=== PATIENT | male | born 1975 | race Hispanic/Latino ===

== ENCOUNTER 2021-07-13 21:43 | Emergency (ER) | payer OTHER, SELFPAY ==
[2021-07-13 21:50] VITALS: BP 176/95; PULSE 81; RESP 17; TEMP 36.7; O2SAT 98; BMI 32.8
--- NOTE | 2021-07-13 22:14 | ED_ITS ---
HPI - Abdominal Pain General Chief Complaint: Abdominal Pain Stated Complaint: abdominal pain Time Seen by Provider: 07/13/21 22:13 Source: patient Mode of arrival: Ambulatory History of Present Illness HPI narrative: 46-year-old male nonsmoker without history of alcohol abuse presents for evaluation of generalized abdominal pain gradually worsening over the past 2-3 days. He states that he has had nausea and some vomiting as well as decreased bowel movements for least 1 week. He states that he is passing gas. He has had no fever chills. He denies any dietary change. He was seen and evaluated at an outside facility on June 26 and diagnosed with pancreatitis. He had labs and imaging and was discharged home with pain control and antiemetics. He has not taken any stool softeners. He states this feels significantly different than when he had pancreatitis, less severe and it does not radiate to his back. Related Data Allergies Allergy/AdvReac Type Severity Reaction Status Date / Time No Known Drug Allergies Allergy Verified 07/13/21 22:08 Review of Systems Review of Systems Narrative: GENERAL: Denies chills, fatigue, malaise, fever, sweats. HEENT: Denies sinus pain, ear pain, sore throat, difficulty swallowing, dizziness. RESPIRATORY: Denies dyspnea, cough, wheezing, hemoptysis, sputum. CARDIOVASCULAR: Denies chest pain, palpitations, orthopnea, edema, GASTROINTESTINAL: See HPI : Denies dysuria, frequency, incontinence, hematuria, urinary retention. MUSCULOSKELETAL: denies weakness, joint pain, or bony pain SKIN: Denies rash, skin lesions, or other NEUROLOGIC: Denies weakness, headache, numbness, change in speech, confusion, seizures, incoordination. PSYCHIATRIC: No concerning psychosocial issues. 12 point review of systems is negative except for those stated above Patient History Social History Smoking Status: Never smoker Smoking Status: Never smoker Substance Use Type: does not use Exam Narrative Exam Narrative: GENERAL: [46] year old patient appears stated age. Well-developed patient, in mild distress. HEAD: Atraumatic. Normocephalic. EYES: Pupils equal round and reactive. Extraocular motions intact. No scleral icterus. No injection or drainage. ENT: Nose without bleeding, purulent drainage. Throat without erythema, tonsill ar hypertrophy or exudate. Airway patent. NECK: Trachea midline. Non tender CARDIOVASCULAR: Regular rate and rhythm without murmurs, gallops, or rubs. RESPIRATORY: Clear to auscultation. Breath sounds equal bilaterally. No wheezes, rales, or rhonchi. GASTROINTESTINAL: Abdomen soft, minimal tenderness throughout, nondistended. Decreased bowel sounds EXTREMITIES: No edema or joint tenderness. BACK: Nontender without deformity or crepitance. No flank tenderness. NEURO: AOx3. SKIN: No rash or erythema of visible areas Initial Vital Signs Initial Vital Signs: Vital Signs Temperature 98.1 F 07/13/21 21:50 Pulse Rate 81 07/13/21 21:50 Respiratory Rate 17 07/13/21 21:50 Blood Pressure 176/95 H 07/13/21 21:50 Pulse Oximetry 98 07/13/21 21:50 Course Orders Ordered: ED Orders 07/13/21 22:12 EKG-12 Lead Stat 07/13/21 22:18 XR acute abdomen series Stat 07/13/21 22:22 Complete Blood Count AUTO DIFF Stat Comprehensive Metabolic Panel Stat Lipase Stat Discontinued Medications Sodium Chloride (Normal Saline 0.9%) 1,000 mls @ 1,000 mls/hr IV BOLUS ONE Stop: 07/13/21 23:17 Last Admin: 07/13/21 22:40 Dose: 1,000 mls/hr Documented by: CALIXTO Pantoprazole Sodium (Pantoprazole 40 Mg Vial) 40 mg IV NOW ONE Stop: 07/13/21 22:19 Last Admin: 07/13/21 22:40 Dose: 40 mg Documented by: CALIXTO Vital Signs Vital signs: Vital Signs - 8 hr 07/13/21 21:50 Temperature 98.1 F Pulse Rate 81 Respiratory Rate 17 Blood Pressure 176/95 H Pulse Oximetry 98 MDM - Abdominal Pain Lab Data Result diagrams: 07/13/21 22:22 07/13/21 22:22 Labs: Lab Results 07/13/21 07/13/21 Range/Units 22:22 22:22 WBC 10.4 (4.5-11.0) X10^3/uL RBC 4.59 (4.5-5.9) X10^6/uL Hgb 13.7 (13.5-17.5) g/dL Hct 39.4 L (41-53) % MCV 85.8 (80-100) fL MCH 30.0 (26-34) PG MCHC 34.9 (30-36) % RDW 13.1 (11.6-14.8) % Plt Count 182 (150-400) X10^3/uL Neut % (Auto) 54.3 (50-75) % Lymph % (Auto) 30.9 (25-40) % Barron % (Auto) 12.8 (3-14) % Eos % (Auto) 1.3 L (2-4) % Baso % (Auto) 0.7 (0-2) % Neut # (Auto) 5600 (1037-5362) /uL Lymph # (Auto) 3200 (2811-9721) /uL Barron # (Auto) 1300 H (0-900) /uL Eos # (Auto) 100 (0-450) /uL Baso # (Auto) 100 (0-100) /uL Sodium 143 (137-145) mmol/L Potassium 3.9 (3.4-5.1) mmol/L Chloride 109 H (98-107) mmol/L Carbon Dioxide 27 (22-32) mmol/L BUN 19 (9-20) mg/dL Creatinine 1.01 (0.66-1.25) mg/dL Estimated GFR > 60 (>60) mL/min BUN/Creatinine Ratio 18.8 (6-22) Glucose 104 H (70-100) mg/dL Calcium 8.6 (8.4-10.2) mg/dL Total Bilirubin 0.8 (0.2-1.3) mg/dL AST 28 (17-59) IU/L ALT 37 (<50) IU/L Alkaline Phosphatase 70 (38-126) U/L Total Protein 6.8 (6.3-8.2) g/dL Albumin 3.9 (3.5-5.0) g/dL Globulin 2.9 (1.7-4.1) g/dL Albumin/Globulin Ratio 1.3 (1.0-2.8) Lipase 38 (23-300) U/L Imaging Data Abdominal x-ray: Radiologist's Impression: [address] [address] XRay Report Signed Patient: Flakito Arzola MR#: [id number] : 1975 Acct:[id number] Age/Sex: 46 / M Date of Service: 07/13/21 Loc: ED Accession Number: [id number] ?? Procedure: XR acute abdomen series Ordering Provider: Yanick White D.O. PROCEDURE:? XR ACUTE ABDOMEN SERIES ? INDICATIONS:? decreased BM ? TECHNIQUE:? One view chest and two views of the abdomen were acquired.? ? COMPARISON:? None. ? FINDINGS:? ? Surgical changes and devices:? Cholecystectomy clips. ? Chest:? Lungs are clear.? Heart size is within normal limits.? No pleural effusions.? No pneumoperitoneum.? ? Abdomen:? Relative paucity of small bowel gas.? No dilated loops of bowel identified.? Mild colonic stool burden.? No suspicious calcifications.? Visualized solid organ contours appear normal.? ? Bones:? No suspicious bony lesions.? Minimal scoliosis. ? IMPRESSION:? No acute cardiopulmonary abnormality. ? No dilated loops of small bowel identified.? Relative paucity of small bowel gas limits evaluation for obstruction.? Mild colonic stool burden. ? ? ? Dictated by: Grzegorz Dimas M.D. on 07/13/2021 at 23:03 ? ? Approved by: Grzegorz Dimas M.D. on 07/13/2021 at 23:05 ? MDM Narrative Medical decision making narrative: Patient presents with chief complaint of mild, generalized abdominal pain and decreased bowel movements. He has a very reassuring history and physical exam as well as labs. X-ray shows a large stool burden but no evidence of bowel obstruction. He had recently been seen and and evaluated for pancreatitis at an outside facility nearly 2 weeks ago. He states it feels significantly different today. He had been on opioids. History and physical as well as exam and imaging are most consistent with constipation though gallbladder disease, liver and pancreas are all considered along with bowel obstruction and other. Given reassuring history and physical as well as labs constipation seems most likely diagnosis. I did discuss with the patient that I did not recommend repeat CT scan at this time given the circumstances and low suspicion of any significant underlying diagnosis. He expresses agreement and understanding of the diagnosis and plan. Pain well controlled and patient tolerating oral hydration. Return precautions discussed and questions answered to his apparent satisfaction Discharge Plan Departure Patient Disposition: Home Clinical Impression: Abdominal pain Instructions: DI for Abdominal Pain-Adult Activity Restrictions/Additional Instructions: *You have been diagnosed with [ abdominal pain due to constipation ] *What to do: *Take over the counter medications as directed: 1. Metamucil - bulk forming laxative adds fiber 2. Colace - softens your stool 3. Dulcolax Suppository - stimulates your bowels from the bottom *Follow up with your primary care provider in 2-3 days, call for appointment *Return to ER if you should have any new, worsening or concerning symptoms *Drink plenty of water and eat foods high in fiber *Try to be as active as possible, consider walking your dog daily
--- NOTE | 2021-07-13 22:18 | DI.RAD.S_ITS ---
PROCEDURE: XR ACUTE ABDOMEN SERIES INDICATIONS: decreased BM TECHNIQUE: One view chest and two views of the abdomen were acquired. COMPARISON: None. FINDINGS: Surgical changes and devices: Cholecystectomy clips. Chest: Lungs are clear. Heart size is within normal limits. No pleural effusions. No pneumoperitoneum. Abdomen: Relative paucity of small bowel gas. No dilated loops of bowel identified. Mild colonic stool burden. No suspicious calcifications. Visualized solid organ contours appear normal. Bones: No suspicious bony lesions. Minimal scoliosis. IMPRESSION: No acute cardiopulmonary abnormality. No dilated loops of small bowel identified. Relative paucity of small bowel gas limits evaluation for obstruction. Mild colonic stool burden. Dictated by: Grzegorz Dimas M.D. on 07/13/2021 at 23:03 Approved by: Grzegorz Dimas M.D. on 07/13/2021 at 23:05
[2021-07-13 22:29] LABS: Add Manual Diff / Slide Review NO; Basophils Absolute Auto 100 /uL (0-100); Basophils Percent Auto 0.7 % (0-2); Eosinophils Absolute Auto 100 /uL (0-450); Eosinophils Percent Auto 1.3 % (2-4); Hematocrit 39.4 % (41-53); Hemoglobin 13.7 g/dL (13.5-17.5); Lymphocytes Absolute Auto 3200 /uL (1100-4500); Lymphocytes Percent Auto 30.9 % (25-40); Mean Corpuscular HGB Conc 34.9 % (30-36); Mean Corpuscular Volume 85.8 fL (80-100); Monocytes Absolute Auto 1300 /uL (0-900); Monocytes Percent Auto 12.8 % (3-14); Neutrophils Absolute Auto 5600 /uL (1500-7000); Neutrophils Percent Auto 54.3 % (50-75); Platelet Count 182 X10^3/uL (150-400); Red Blood Cell Count 4.59 X10^6/uL (4.5-5.9); Red Cell Distribution Width 13.1 % (11.6-14.8); White Blood Cell Count 10.4 X10^3/uL (4.5-11.0)
[2021-07-13 22:40] LABS: Alanine Aminotransferase 37 IU/L (<50); Albumin 3.9 g/dL (3.5-5.0); Albumin Globulin Ratio 1.3 (1.0-2.8); Alkaline Phosphatase 70 U/L (38-126); Aspartate Aminotransferase 28 IU/L (17-59); BUN Creatinine Ratio 18.8 (6-22); Bilirubin Total 0.8 mg/dL (0.2-1.3); Blood Urea Nitrogen 19 mg/dL (9-20); Calcium 8.6 mg/dL (8.4-10.2); Carbon Dioxide 27 mmol/L (22-32); Chloride 109 mmol/L (98-107); Estimated Glomerular Filt Rate > 60 mL/min (>60); Globulin 2.9 g/dL (1.7-4.1); Glucose 104 mg/dL (70-100); HEMOLYSIS 37 (0-50); Lipase 38 U/L (23-300); Potassium 3.9 mmol/L (3.4-5.1); Sodium 143 mmol/L (137-145); Total Protein 6.8 g/dL (6.3-8.2)
[2021-07-13] MEDS: SODIUM CHLORIDE 0.9% 1,000 ML 1000 ML IV (22:40)
[2021-07-13] MEDS: PANTOPRAZOLE 40 MG VIAL IV (22:40)
== END 2021-07-13 23:59 | disposition home or self-care (01) ==
PROVIDERS: Emergency Provider Emergency Medicine
DX: R10.84 Generalized abdominal pain (principal); R11.2 Nausea with vomiting, unspecified
CPT/HCPCS: 74022; 80053; 83690; 85025; 96374; 99283; 99284; C9113

== ENCOUNTER → 2023-09-20 19:05 | Outpatient (CLI) | payer OTHER, SELFPAY ==
--- NOTE | 2023-09-20 19:07 | DI.MRI.S_ITS ---
PROCEDURE: MR LUMBAR SPINE WO CON INDICATIONS: CHRONIC LOW BACK PAIN TECHNIQUE: Noncontrast sagittal T1 spin echo and T2 fast echo, sagittal STIR, and T2 fast spin echo through the lumbar spine. In cases with scoliosis, additional coronal T2 fast spin echo may be performed. COMPARISON: None. FINDINGS: Alignment and Curvature: There is normal bony alignment. Bone Marrow: Edematous Modic type 1 degenerative endplate changes noted L3-4 Spinal Cord: Conus medullaris terminates at the L1 level. Visualized cord demonstrates normal signal and size. Paraspinous Soft Tissues: No paravertebral masses. T12-L1: Normal appearance. L1-L2: L1-2 disc space narrowing and hypertrophic facet joints. No central or foraminal stenosis L2-L3: L2-3 disc space narrowing mild central stenosis. Moderate left and no right foraminal stenosis L3-L4: Disc space narrowing and posterior disc bulge with arthropathy. Moderate central stenosis. Moderate right and mild left foraminal stenosis. L4-L5: Disc space narrowing and posterior disc bulge with mild central stenosis. Arthropathy results in moderate bilateral foraminal stenosis L5-S1: Disc space narrowing and posterior disc bulge with arthropathy. No central stenosis. Severe bilateral foraminal stenosis. IMPRESSION: Degenerative disc disease and arthropathy at L3-4 results in moderate central stenosis Approved by: Hans Burrell M.D. on 09/21/2023 at 14:50
== END ==
PROVIDERS: Referring Provider Student in an Organized Health Care Education/Training Program; Visit Provider Student in an Organized Health Care Education/Training Program
DX: M51.36 Other intervertebral disc degeneration, lumbar region (principal); M47.816 Spondylosis without myelopathy or radiculopathy, lumbar region; M48.061 Spinal stenosis, lumbar region without neurogenic claudication; M51.37 Other intervertebral disc degeneration, lumbosacral region; M47.817 Spondylosis without myelopathy or radiculopathy, lumbosacral region; M48.07 Spinal stenosis, lumbosacral region; M54.50 Low back pain, unspecified
CPT/HCPCS: 72148